=== PATIENT | male | born 1995 ===

== ENCOUNTER 2018-10-04 11:33 | Emergency (ER) | payer SELFPAY ==
--- NOTE | 2018-10-04 12:27 | ULT ---
Exam: Scrotal ultrasound including color and spectral Doppler imaging: HISTORY: Right testicular pain FINDINGS: Right testes measures 3.6 x 2.2 x 2.9 cm. Left testes measures 4 x 2 x 2.4 cm Epididymal regions appear unremarkable. No evidence for hydrocele. No intratesticular mass. Vascular duplex with color and spectral Doppler imaging demonstrates vascular flow to both testes. No evidence for testicular torsion. IMPRESSION: Unremarkable bilateral scrotal ultrasound. No intratesticular mass or testicular torsion.
[2018-10-04 12:29] LABS: Bilirubin Negative (Negative); Blood, Urine Negative (Negative); Clarity TURBID (Clear); Glucose, Urine (Dipstick) Negative (Negative); Leukocyte Small (Negative); Nitrite Negative (Negative); Protein, Urine (Dipstick) 30 mg/dL (Neg-Trace); Specific Gravity, Urine 1.024 (1.002-1.036); Urobilinogen 0.2 mg/dL (0.2-1.0); pH, Urine 7.5 (5.0-9.0)
[2018-10-04 12:30] LABS: Bacteria/HPF None Seen HPF (None Seen); Hyaline Casts/LPF 7-10 HYALINE CAST LPF (0-3 Hyaline); Pathc Cast-AUWi Flag 1.08 (0-2.49); RBC/HPF 0-3 HPF (0-3); Squamous Epithelial 0-3 HPF (0-3)
[2018-10-04] MEDS ORDERED: cefTRIAXone\\ROCEPHIN 1 GM VIAL ONE (13:08)
[2018-10-04] MEDS ORDERED: Lidocaine 1% PF 5 ML VIAL ONE (13:08)
[2018-10-04] MEDS ORDERED: Azithromycin 250 MG TAB ONE (13:08)
== END 2018-10-04 13:20 | disposition home or self-care (01) ==
LOC: ERS 11:33
DX: N45.1 Epididymitis (principal); F17.210 Nicotine dependence, cigarettes, uncomplicated
CPT/HCPCS: 76870; 81003; 81015; 93976; 96372; J0696; J2001